=== PATIENT | female | born 1960 | race Caucasian/White ===

== ENCOUNTER 2018-11-24 15:11 | Outpatient (CLI) | payer MEDICAID, SELFPAY ==
[2018-11-24 15:29] LABS: Abs Immature Grans 0.01 k/cumm (0.0-0.09); Absolute Basophil Count 0.01 k/cumm (0.0-0.2); Absolute Eosinophil Count 0.06 k/cumm (0.0-0.7); Absolute Lymphocyte Count 2.38 k/cumm (1.2-3.4); Absolute Monocyte Count 0.81 k/cumm (0.11-0.7); Absolute Neutrophil Count 4.02 k/cumm (1.2-6.7); Basophils % 0.1; Eosinophils % 0.8; HCT 37.3 % (36.0-46.0); Immature Grans % 0.1; Lymphocytes % 32.6; Mean Corp. HGB Concentration 34.9 g/dL (32.0-36.0); Mean Corpuscular Hemoglobin 34.1 pg (27.0-33.0); Mean Corpuscular Volume 97.9 fL (80-95); Monocytes % 11.1; Neutrophils % 55.3; Platelet Count 254 x1000/uL (130-400); RBC 3.81 m/cumm (4.00-5.20); RBC Distribution Width 13.2 % (11.7-14.6); White Blood Cell Count 7.29 k/cumm (4.4-10.8)
[2018-11-24 16:27] LABS: ALT 15 U/L (12-78); AST 18 U/L (15-37); Alkaline Phosphatase 55 U/L (46-116); Anion Gap 9.9 mmol/L (3-11); BUN 13 mg/dL (7-18); Bilirubin, Total 0.4 mg/dL (0.2-1.0); C-Reactive Protein 0.79 mg/dL (0.0-0.3); CO2 27.1 mmol/L (21.0-32.0); CREATININE 0.78 mg/dL (0.55-1.02); Calcium 10.1 mg/dL (8.5-10.1); Chloride 99 mmol/L (98-107); Glucose 114 mg/dL (70-100); Sodium 136 mmol/L (136-145); Total Protein 7.5 g/dL (6.4-8.2)
== END 2018-11-24 15:31 ==
PROVIDERS: Visit Provider Internal Medicine Rheumatology
DX: M06.4 Inflammatory polyarthropathy (principal); Z79.899 Other long term (current) drug therapy
CPT/HCPCS: 36415; 80053; 85025; 86140

== ENCOUNTER 2019-02-26 14:12 | Outpatient (CLI) | payer MEDICAID, SELFPAY ==
[2019-02-26 14:32] LABS: Abs Immature Grans 0.01 k/cumm (0.0-0.09); Absolute Basophil Count 0.01 k/cumm (0.0-0.2); Absolute Eosinophil Count 0.08 k/cumm (0.0-0.7); Absolute Lymphocyte Count 2.32 k/cumm (1.2-3.4); Absolute Monocyte Count 0.57 k/cumm (0.11-0.7); Absolute Neutrophil Count 3.88 k/cumm (1.2-6.7); Basophils % 0.1; Eosinophils % 1.2; HCT 42.2 % (36.0-46.0); HGB 14.1 g/dL (12.0-15.5); Immature Grans % 0.1; Lymphocytes % 33.8; Mean Corp. HGB Concentration 33.4 g/dL (32.0-36.0); Mean Corpuscular Hemoglobin 31.9 pg (27.0-33.0); Mean Corpuscular Volume 95.5 fL (80-95); Mean Platelet Volume 9.3 fL (8.0-11.0); Monocytes % 8.3; Neutrophils % 56.5; Platelet Count 242 x1000/uL (130-400); RBC 4.42 m/cumm (4.00-5.20); RBC Distribution Width 13.7 % (11.7-14.6); White Blood Cell Count 6.87 k/cumm (4.4-10.8)
[2019-02-26 15:41] LABS: ALT 19 U/L (12-78); AST 20 U/L (15-37); Albumin 4.3 g/dL (3.4-5.0); Alkaline Phosphatase 75 U/L (46-116); Anion Gap 12.1 mmol/L (3-11); BUN 15 mg/dL (7-18); Bilirubin, Total 0.4 mg/dL (0.2-1.0); C-Reactive Protein 0.49 mg/dL (0.0-0.3); CO2 26.9 mmol/L (21.0-32.0); Calcium 10.2 mg/dL (8.5-10.1); Chloride 99 mmol/L (98-107); Glucose 112 mg/dL (70-100); Sodium 138 mmol/L (136-145)
== END 2019-02-26 14:32 ==
PROVIDERS: Visit Provider Internal Medicine Rheumatology
DX: M06.4 Inflammatory polyarthropathy (principal); Z79.899 Other long term (current) drug therapy
CPT/HCPCS: 36415; 80053; 85025; 86140

== ENCOUNTER 2019-04-23 15:06 | Outpatient (CLI) | payer MEDICAID, SELFPAY ==
[2019-04-23 15:44] LABS: Abs Immature Grans 0.01 k/cumm (0.0-0.09); Absolute Basophil Count 0.01 k/cumm (0.0-0.2); Absolute Eosinophil Count 0.11 k/cumm (0.0-0.7); Absolute Lymphocyte Count 1.93 k/cumm (1.2-3.4); Absolute Monocyte Count 0.63 k/cumm (0.11-0.7); Absolute Neutrophil Count 3.04 k/cumm (1.2-6.7); Basophils % 0.2; Eosinophils % 1.9; HCT 39.9 % (36.0-46.0); HGB 13.4 g/dL (12.0-15.5); Immature Grans % 0.2; Lymphocytes % 33.7; Mean Corp. HGB Concentration 33.6 g/dL (32.0-36.0); Mean Corpuscular Hemoglobin 31.6 pg (27.0-33.0); Mean Corpuscular Volume 94.1 fL (80-95); Mean Platelet Volume 9.4 fL (8.0-11.0); Platelet Count 302 x1000/uL (130-400); RBC 4.24 m/cumm (4.00-5.20); White Blood Cell Count 5.73 k/cumm (4.4-10.8)
[2019-04-23 17:56] LABS: ALT 15 U/L (12-78); AST 13 U/L (15-37); Albumin 3.5 g/dL (3.4-5.0); Alkaline Phosphatase 76 U/L (46-116); Anion Gap 11.5 mmol/L (3-11); BUN 13 mg/dL (7-18); Bilirubin, Total 0.3 mg/dL (0.2-1.0); C-Reactive Protein 3.72 mg/dL (0.0-0.3); CO2 25.5 mmol/L (21.0-32.0); CREATININE 0.71 mg/dL (0.55-1.02); Calcium 9.3 mg/dL (8.5-10.1); Chloride 100 mmol/L (98-107); Glucose 155 mg/dL (70-100); Sodium 137 mmol/L (136-145); Total Protein 7.3 g/dL (6.4-8.2)
== END 2019-04-23 15:26 ==
PROVIDERS: Visit Provider Internal Medicine Rheumatology
DX: M06.4 Inflammatory polyarthropathy (principal); Z79.899 Other long term (current) drug therapy
CPT/HCPCS: 36415; 80053; 85025; 86140

== ENCOUNTER 2019-06-15 14:33 | Outpatient (CLI) | payer MEDICAID, SELFPAY ==
[2019-06-15 14:59] LABS: Abs Immature Grans 0.01 k/cumm (0.0-0.09); Absolute Basophil Count 0.01 k/cumm (0.0-0.2); Absolute Eosinophil Count 0.07 k/cumm (0.0-0.7); Absolute Lymphocyte Count 1.43 k/cumm (1.2-3.4); Absolute Monocyte Count 0.49 k/cumm (0.11-0.7); Absolute Neutrophil Count 2.67 k/cumm (1.2-6.7); Basophils % 0.2; Eosinophils % 1.5; HCT 39.7 % (36.0-46.0); HGB 13.8 g/dL (12.0-15.5); Immature Grans % 0.2; Lymphocytes % 30.6; Mean Corp. HGB Concentration 34.8 g/dL (32.0-36.0); Mean Corpuscular Hemoglobin 32.9 pg (27.0-33.0); Mean Corpuscular Volume 94.5 fL (80-95); Mean Platelet Volume 9.1 fL (8.0-11.0); Monocytes % 10.5; Platelet Count 185 x1000/uL (130-400); RBC Distribution Width 17.5 % (11.7-14.6); White Blood Cell Count 4.68 k/cumm (4.4-10.8)
[2019-06-15 16:14] LABS: ALT 19 U/L (12-78); AST 15 U/L (15-37); Albumin 4.1 g/dL (3.4-5.0); Alkaline Phosphatase 50 U/L (46-116); Anion Gap 10.3 mmol/L (3-11); BUN 14 mg/dL (7-18); Bilirubin, Total 0.4 mg/dL (0.2-1.0); CO2 26.7 mmol/L (21.0-32.0); CREATININE 0.69 mg/dL (0.55-1.02); Calcium 9.4 mg/dL (8.5-10.1); Chloride 101 mmol/L (98-107); Glucose 103 mg/dL (70-100); Potassium 3.9 mmol/L (3.5-5.1); Sodium 138 mmol/L (136-145); Total Protein 7.2 g/dL (6.4-8.2)
[2019-06-15 16:37] LABS: C-Reactive Protein < 0.05 mg/dL (0.0-0.3)
== END 2019-06-15 14:53 ==
PROVIDERS: PCP Internal Medicine Rheumatology; Visit Provider Internal Medicine Rheumatology
DX: M06.4 Inflammatory polyarthropathy (principal); Z79.899 Other long term (current) drug therapy
CPT/HCPCS: 36415; 80053; 85025; 86140

== ENCOUNTER 2019-08-21 13:45 | Outpatient (CLI) | payer MEDICAID, SELFPAY ==
[2019-08-21 14:15] LABS: Abs Immature Grans 0.01 k/cumm (0.0-0.09); Absolute Basophil Count 0.01 k/cumm (0.0-0.2); Absolute Eosinophil Count 0.18 k/cumm (0.0-0.7); Absolute Lymphocyte Count 1.99 k/cumm (1.2-3.4); Absolute Monocyte Count 0.51 k/cumm (0.11-0.7); Absolute Neutrophil Count 2.16 k/cumm (1.2-6.7); Basophils % 0.2; Eosinophils % 3.7; HCT 40.9 % (36.0-46.0); HGB 14.1 g/dL (12.0-15.5); Immature Grans % 0.2; Lymphocytes % 40.9; Mean Corp. HGB Concentration 34.5 g/dL (32.0-36.0); Mean Corpuscular Hemoglobin 32.9 pg (27.0-33.0); Mean Corpuscular Volume 95.3 fL (80-95); Mean Platelet Volume 9.1 fL (8.0-11.0); Monocytes % 10.5; Neutrophils % 44.5; Platelet Count 192 x1000/uL (130-400); RBC 4.29 m/cumm (4.00-5.20); RBC Distribution Width 13.5 % (11.7-14.6); White Blood Cell Count 4.86 k/cumm (4.4-10.8)
[2019-08-21 15:30] LABS: ALT 17 U/L (14-59); AST 20 U/L (15-37); Albumin 4.7 g/dL (3.4-5.0); Alkaline Phosphatase 56 U/L (46-116); Anion Gap 11.3 mmol/L (3-11); BUN 14 mg/dL (7-18); Bilirubin, Total 0.6 mg/dL (0.2-1.0); CO2 27.7 mmol/L (21.0-32.0); CREATININE 0.71 mg/dL (0.55-1.02); Calcium 9.5 mg/dL (8.5-10.1); Chloride 103 mmol/L (98-107); Glucose 121 mg/dL (70-100); Potassium 3.9 mmol/L (3.5-5.1); Sodium 142 mmol/L (136-145); Total Protein 7.5 g/dL (6.4-8.2)
[2019-08-21 15:37] LABS: C-Reactive Protein < 0.05 mg/dL (0.0-0.3)
== END 2019-08-21 14:05 ==
PROVIDERS: PCP Internal Medicine Rheumatology; Visit Provider Internal Medicine Rheumatology
DX: M06.4 Inflammatory polyarthropathy (principal); Z79.899 Other long term (current) drug therapy
CPT/HCPCS: 36415; 80053; 85025; 86140

== ENCOUNTER 2019-12-02 14:02 | Outpatient (CLI) | payer MEDICAID, SELFPAY ==
[2019-12-02 14:37] LABS: Abs Immature Grans 0.01 k/cumm (0.0-0.09); Absolute Basophil Count 0.01 k/cumm (0.0-0.2); Absolute Eosinophil Count 0.15 k/cumm (0.0-0.7); Absolute Lymphocyte Count 1.69 k/cumm (1.2-3.4); Absolute Monocyte Count 0.44 k/cumm (0.11-0.7); Absolute Neutrophil Count 1.51 k/cumm (1.2-6.7); Basophils % 0.3; Eosinophils % 3.9; HCT 41.3 % (36.0-46.0); HGB 14.1 g/dL (12.0-15.5); Immature Grans % 0.3 %; Lymphocytes % 44.4; Mean Corp. HGB Concentration 34.1 g/dL (32.0-36.0); Mean Corpuscular Hemoglobin 32.9 pg (27.0-33.0); Mean Corpuscular Volume 96.3 fL (80-95); Mean Platelet Volume 9.6 fL (8.0-11.0); Monocytes % 11.5; Neutrophils % 39.6; Platelet Count 194 x1000/uL (130-400); RBC 4.29 m/cumm (4.00-5.20); RBC Distribution Width 13.6 % (11.7-14.6); White Blood Cell Count 3.81 k/cumm (4.4-10.8)
[2019-12-02 15:36] LABS: ALT 17 U/L (14-59); AST 19 U/L (15-37); Albumin 4.6 g/dL (3.4-5.0); Alkaline Phosphatase 53 U/L (46-116); Anion Gap 11.6 mmol/L (3-11); BUN 16 mg/dL (7-18); Bilirubin, Total 0.5 mg/dL (0.2-1.0); CO2 26.4 mmol/L (21.0-32.0); CREATININE 0.63 mg/dL (0.55-1.02); Calcium 9.4 mg/dL (8.5-10.1); Chloride 103 mmol/L (98-107); Glucose 107 mg/dL (74-106); Potassium 4.1 mmol/L (3.5-5.1); Sodium 141 mmol/L (136-145); Total Protein 7.2 g/dL (6.4-8.2)
[2019-12-02 16:00] LABS: C-Reactive Protein < 0.05 mg/dL (0.0-0.3)
== END 2019-12-02 14:22 ==
PROVIDERS: PCP Internal Medicine Rheumatology; Visit Provider Internal Medicine Rheumatology
DX: M06.4 Inflammatory polyarthropathy (principal); Z79.899 Other long term (current) drug therapy
CPT/HCPCS: 36415; 80053; 85025; 86140

== ENCOUNTER 2020-05-05 02:40 | Outpatient (CLI) | payer MEDICAID, SELFPAY ==
[2020-05-05 13:56] LABS: Absolute Eosinophil Count 0.15 k/cumm (0.0-0.7); Absolute Lymphocyte Count 1.41 k/cumm (1.2-3.4); Absolute Monocyte Count 0.41 k/cumm (0.11-0.7); Absolute Neutrophil Count 1.42 k/cumm (1.2-6.7); Eosinophils % 4.4; HCT 40.2 % (36.0-46.0); HGB 13.8 g/dL (12.0-15.5); Lymphocytes % 41.6; Mean Corp. HGB Concentration 34.3 g/dL (32.0-36.0); Mean Corpuscular Hemoglobin 33.3 pg (27.0-33.0); Mean Corpuscular Volume 97.1 fL (80-95); Mean Platelet Volume 9.9 fL (8.0-11.0); Monocytes % 12.1; Neutrophils % 41.9; Platelet Count 185 x1000/uL (130-400); RBC 4.14 m/cumm (4.00-5.20); White Blood Cell Count 3.39 k/cumm (4.4-10.8)
[2020-05-05 15:38] LABS: ALT 28 U/L (14-59); AST 27 U/L (15-37); Albumin 4.9 g/dL (3.4-5.0); Alkaline Phosphatase 48 U/L (46-116); Anion Gap 11.4 mmol/L (3-11); BUN 14 mg/dL (7-18); Bilirubin, Total 0.5 mg/dL (0.2-1.0); CO2 24.6 mmol/L (21.0-32.0); CREATININE 0.75 mg/dL (0.55-1.02); Calcium 9.8 mg/dL (8.5-10.1); Calculated LDL 134 mg/dL (<100); Chloride 101 mmol/L (98-107); Cholesterol 279 mg/dL (<200); Glucose 96 mg/dL (74-106); HDL Cholesterol 137 mg/dL (40-60); Potassium 4.2 mmol/L (3.5-5.1); Sodium 137 mmol/L (136-145); Total Protein 7.4 g/dL (6.4-8.2); Triglyceride 43 mg/dL (<150)
[2020-05-05 15:41] LABS: C-Reactive Protein < 0.05 mg/dL (0.0-0.3)
== END 2020-05-05 03:00 ==
PROVIDERS: PCP Internal Medicine Rheumatology; Visit Provider Nurse Practitioner Family
DX: M06.4 Inflammatory polyarthropathy (principal); Z79.899 Other long term (current) drug therapy; I10 Essential (primary) hypertension
CPT/HCPCS: 36415; 80053; 80061; 85025; 86140

== ENCOUNTER 2020-11-09 03:06 | Outpatient (CLI) | payer MEDICAID, SELFPAY ==
[2020-11-09 14:11] LABS: Abs Immature Grans 0.02 10^3/uL (0.0-0.06); Absolute Basophil Count 0.01 10^3/uL (0.0-0.2); Absolute Lymphocyte Count 1.57 10^3/uL (1.2-3.4); Absolute Monocyte Count 0.46 10^3/uL (0.1-0.8); Basophils % 0.3; Eosinophils % 2.6; HCT 41.5 % (36.0-46.0); HGB 13.9 g/dL (11.2-15.7); Immature Grans % 0.5; Lymphocytes % 40.5; MCHC 33.5 % (32.0-36.0); MCV 98.6 fL (80-95); MPV 9.8 fL (8.0-11.0); Monocytes % 11.9; Neutrophils % 44.2; Nucleated RBC 0 %; Platelet Count 165 10^3/uL (130-400); RBC 4.21 10^6/uL (3.93-5.22); RDW 13.6 % (11.7-14.6); RDW-SD 49.8 fL; WBC 3.88 10^3/uL (4.4-10.8)
[2020-11-09 14:17] LABS: Absolute Neutrophil Count 1.71 10^3/uL (1.2-6.7)
[2020-11-09 14:58] LABS: ALT 24 U/L (14-59); AST 21 U/L (15-37); Albumin 4.8 g/dL (3.4-5.0); Alkaline Phosphatase 51 U/L (46-116); Anion Gap 10.9 mmol/L (3-11); BUN 15 mg/dL (7-18); Bilirubin, Total 0.6 mg/dL (0.2-1.0); CO2 24.1 mmol/L (21.0-32.0); CREATININE 0.65 mg/dL (0.55-1.02); Calcium 9.9 mg/dL (8.5-10.1); Chloride 103 mmol/L (98-107); Glucose 100 mg/dL (74-106); Sodium 138 mmol/L (136-145); Total Protein 7.3 g/dL (6.4-8.2)
[2020-11-09 15:04] LABS: C-Reactive Protein < 0.05 mg/dL (0.0-0.3)
== END 2020-11-09 03:26 ==
PROVIDERS: PCP Internal Medicine Rheumatology; Visit Provider Internal Medicine Rheumatology
DX: M06.4 Inflammatory polyarthropathy (principal); Z79.899 Other long term (current) drug therapy
CPT/HCPCS: 36415; 80053; 85025; 86140

== ENCOUNTER 2021-04-21 04:02 | Outpatient (CLI) | payer MEDICAID, SELFPAY ==
[2021-04-21 14:18] LABS: Abs Immature Grans 0.01 10^3/uL (0.0-0.06); Absolute Basophil Count 0.02 10^3/uL (0.0-0.2); Absolute Eosinophil Count 0.22 10^3/uL (0.0-0.7); Absolute Lymphocyte Count 1.96 10^3/uL (1.2-3.4); Absolute Monocyte Count 0.48 10^3/uL (0.1-0.8); Absolute Neutrophil Count 1.43 10^3/uL (1.2-6.7); Basophils % 0.5; Eosinophils % 5.3; HCT 41.2 % (36.0-46.0); HGB 14.1 g/dL (11.2-15.7); Immature Grans % 0.2; Lymphocytes % 47.6; MCH 33.6 pg (27.0-33.0); MCHC 34.2 % (32.0-36.0); MCV 98.1 fL (80-95); MPV 10.1 fL (8.0-11.0); Monocytes % 11.7; Neutrophils % 34.7; Nucleated RBC 0 %; Platelet Count 164 10^3/uL (130-400); WBC 4.12 10^3/uL (4.4-10.8)
[2021-04-21 14:59] LABS: ALT 33 U/L (14-59); AST 28 U/L (15-37); Albumin 4.8 g/dL (3.4-5.0); Alkaline Phosphatase 55 U/L (46-116); Anion Gap 10.5 mmol/L (3-11); BUN 18 mg/dL (7-18); Bilirubin, Total 0.4 mg/dL (0.2-1.0); CO2 25.5 mmol/L (21.0-32.0); CREATININE 0.7 mg/dL (0.55-1.02); Calcium 9.6 mg/dL (8.5-10.1); Calculated LDL 113 mg/dL (<100); Chloride 104 mmol/L (98-107); Cholesterol 274 mg/dL (<200); Glucose 95 mg/dL (74-106); HDL Cholesterol 148 mg/dL (40-60); Potassium 4.1 mmol/L (3.5-5.1); Sodium 140 mmol/L (136-145); Total Protein 7.4 g/dL (6.4-8.2); Triglyceride 65 mg/dL (<150)
[2021-04-21 15:40] LABS: C-Reactive Protein < 0.05 mg/dL (0.0-0.3)
== END 2021-04-21 04:03 | disposition home or self-care (01) ==
LOC: LBO 04:02
PROVIDERS: PCP Internal Medicine Rheumatology; Visit Provider Internal Medicine Rheumatology
DX: M06.4 Inflammatory polyarthropathy (principal); Z79.899 Other long term (current) drug therapy
CPT/HCPCS: 36415; 80053; 80061; 85025; 86140

== ENCOUNTER 2024-03-28 05:54 | Emergency (ER) | payer MEDICAID, SELFPAY ==
[2024-03-28] VITALS (27 sets, daily range): BP systolic 137–185; BP diastolic 81–101; PULSE 66–89; RESP 10–26; TEMP 37.2; O2SAT 20–97
--- NOTE | 2024-03-28 06:00 | RT.EKG_ITS ---
APPROVED REPORT Exam: Resting ECG Reason for Exam: short of breath Patient Location: E HR:74 bpm ECG Measurements Heart Rate 74 AXIS AR 178 P 71 QRSd 78 QRS 50 QT 390 T 70 QTc 435 Conclusion Sinus rhythm...normal P axis, V-rate 60- 99 Probable left atrial enlargement...P >50mS, <-0.10mV V1 Physician: no stemi, no [id number]
--- NOTE | 2024-03-28 06:07 | W.ED.GENAD ---
Discharge Plan Discharge Details Chief Complaint: RespSymp Primary Care Provider: Felisha Crews ED Provider: Bautista Hardin Home Meds and New Rx's Prescriptions: No Action calcium carbonate-vitamin D3 [Calcium 500 With D] 1 EACH tablet 1 ea PO BID lisinopril-hydrochlorothiazide 1 EACH tablet 1 tab-cap PO DAILY Qty: 90 acterma HPI General Date/Time Provider Initiated Documentation: 03/28/24 05:54. HPI Narrative: This is a 63-year-old female with a past medical history of tobacco use, rheumatoid arthritis, hypertension, who denies any other significant past medical history who presents today for evaluation of right-sided chest pain. Patient states that this morning about an hour or so ago she woke up and had a sharp pain in her right chest. Pain is constant and sharp in nature, it is worse with breathing though. Pain is isolated to the right chest. No radiation to her arms or neck. She denies any fever or chills. She denies any severe cough. She denies any shortness of breath otherwise. She denies any history of blood clots/PE/[place] or cardiac disease. She denies any hemoptysis. No recent long trips surgeries or procedures. She is not on estrogen. She denies any history of pneumothorax. No trauma. No other complaints at this time. Related Data Home Medications Medication Instructions Recorded Confirmed calcium carbonate 500 mg-vitamin 1 ea PO BID 01/07/14 03/28/24 D3 10 mcg (400 unit) tablet (Calcium 500 With D) lisinopril 10 1 tab-cap PO DAILY #90 tab-caps 06/28/15 03/28/24 mg-hydrochlorothiazide 12.5 mg tablet acterma 03/28/24 Allergies Allergy/AdvReac Type Severity Reaction Status Date / Time fluoxetine AdvReac Unknown TREMOR Unverified 03/28/24 06:05 General Stated Complaint: RespSymp DEE: 3 Review of Systems All systems reviewed & are unremarkable except as noted in HPI and below Exam Narrative Exam Narrative: 1.Const: Well-nourished, Well-developed, appearing stated age 2.Eyes: PERRL, no conjunctival injection, and symmetrical lids. 3.ENT: Atraumatic external nose and ears. Moist MM. Neck: Symmetric, trachea midline, No thyromegaly. 4.CVS: +S1/S2, No murmurs or gallops. Peripheral pulses 2+ and equal in all extremities. Brisk capillary refill in all extremities. 5.RESP: Unlabored respiratory effort. Clear to auscultation bilaterally. No wheezes rales or rhonchi. No reproducible chest wall tenderness 6.GI: Soft, Nontender/Nondistended, No hepatosplenomegaly. No guarding or rebound. Negative Parsons sign. No right upper quadrant tenderness on palpation 7.MSK: Normocephalic/Atraumatic, Extremities w/o deformity or ttp No cyanosis or clubbing, Normal movement of all extremities 8.Skin: Warm, Dry. No rashes or lesions. 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 Sensation grossly intact, no focal neurologic deficits. 10.Psych: (AAO) x3. Appropriate mood and affect Course Vital Signs Vital signs: Vital Signs Temperature 37.2 C 03/28/24 05:56 Pulse 89 03/28/24 05:56 Respiratory Rate 20 03/28/24 05:56 Blood Pressure 185/101 H 03/28/24 05:56 Pulse Oximetry 94 03/28/24 05:56 Temperature 37.2 C 03/28/24 05:56 Pulse 89 03/28/24 05:56 Respiratory Rate 20 03/28/24 05:56 Respiratory Effort Short of Breath 03/28/24 06:00 Respiratory Depth Shallow 03/28/24 06:00 Blood Pressure 185/101 H 03/28/24 05:56 Pulse Oximetry 20 L 03/28/24 06:00 Oxygen Delivery Method Room Air 03/28/24 06:00 Pain Level 7 03/28/24 05:56 Medical Decision Making This is a 63-year-old female with a past medical history of tobacco use, rheumatoid arthritis, hypertension, who denies any other significant past medical history who presents today for evaluation of right-sided chest pain. Patient states that this morning about an hour or so ago she woke up and had a sharp pain in her right chest. Pain is constant and sharp in nature, it is worse with breathing though. Pain is isolated to the right chest. No radiation to her arms or neck. She denies any fever or chills. She denies any severe cough. She denies any shortness of breath otherwise. She denies any history of blood clots/PE/[place] or cardiac disease. She denies any hemoptysis. No recent long trips surgeries or procedures. She is not on estrogen. She denies any history of pneumothorax. No trauma. No other complaints at this time. Exam demonstrates well-appearing female, stable vital signs, EKG shows no STEMI. No rash on the chest wall, no reproducible rib pain. Negative Parsons sign, no right upper quadrant tenderness. Lungs are clear. Differential includes intercostal strain, PE with cardiac strain, less likely ACS, pneumothorax is of concern, and pneumonia is on the differential but low likelihood. Will evaluate for these etiologies, monitor closely and reassess. 7 AM Laboratory workup has returned, no white count bandemia or left shift. Electrolytes stable, VBG normal, proBNP normal suggesting no signs of heart strain. Troponin normal. We are still pending Fluvid results. Pending CT scan. Patient will be signed out to my colleague Dr. Rush for follow-up on repeat troponin and CT scan results. Patient remains hemodynamically stable. Bedside echo shows no signs of right heart strain, no pericardial effusion, no significant wall motion abnormalities. Quality:[facility] Health Related Social Needs: No Data to Display [facility] Social History Smoking/Tobacco Use Status: Current every day Tobacco Type: cigarettes Smoking risk assessment performed?: Yes Alcohol Intake: current Alcohol Intake frequency: a few times a week Substance use type: does not use Do you feel safe at home: Yes PAWSS Have you Been Recently Intoxicated or Drunk Within the Last 30 days?: No Have you Ever Experienced Previous Episodes of Alcohol Withdrawal?: No Have you ever Experienced Withdrawal Seizures?: No Have you ever Experienced Delirium Tremens(DT)s?: No Have you ever undergone Alcohol Rehabilitation Treatment (i.e, inpt ot outpatient treatment programs)?: No Have you ever Experienced Blackouts?: No Have you ever Combined Alcohol with other Downers within the last 90 days?: No Have you ever Combined Alcohol with any other Substance of Abuse during the last 90 days?: No Positive Blood Alcohol level on Presentation? [PCS.BAL]: No Evidence of Increased Autonomic Activity (i.e. HR>120, tremor, sweating, agitation, nausea)?: No Result: 0 POCUS Exam (ED) Limited Cardiac Exam DATE OF EXAM: 03/28/24 TIME OF EXAM: 06:58 PROVIDER THAT PERFORMED THE STUDY: Bautista Hardin IS THIS A REPEAT EXAM DURING THIS ENCOUNTER: no REASON FOR EXAM: Chest pain VISUALIZED STRUCTURES: Left atrium, Left ventricle, Right ventricle, Aortic valve and Interventricular septum VIEW OBTAINED: Parasternal long-axis and Parasternal short-axis PERTINENT FINDINGS/IMPRESSION: No apparent abnormalities Exam complete
[2024-03-28] MEDS: Ketorolac 15 MG/ML VIAL IVP (06:21)
[2024-03-28 06:24] LABS: BE (Venous) -1 mmol/L (-2-3); HCO3 (Venous) 25 mmol/L (23-28); O2 Sat (Venous) 58 %; TCO2 (Venous) 22 mmol/L (24-29); pCO2 (Venous) 44 mmHg (41-51); pH (Venous) 7.36 (7.31-7.41); pO2 (Venous) 31 mmHg
[2024-03-28 06:25] LABS: Abs Immature Grans 0.05 10^3/uL (0.0-0.06); Absolute Basophil Count 0.02 10^3/uL (0.0-0.2); Absolute Eosinophil Count 0.11 10^3/uL (0.0-0.7); Absolute Lymphocyte Count 1.11 10^3/uL (1.2-3.4); Absolute Monocyte Count 0.56 10^3/uL (0.1-0.8); Absolute Neutrophil Count 6.81 10^3/uL (1.2-6.7); Basophils % 0.2 %; Eosinophils % 1.3 %; HCT 43.7 % (36.0-46.0); HGB 14.9 g/dL (11.2-15.7); Immature Grans % 0.6 %; Lymphocytes % 12.8 %; MCH 33.4 pg (27.0-33.0); MCHC 34.1 % (32.0-36.0); MCV 98 fL (80-95); MPV 9.4 fL (8.0-11.0); Monocytes % 6.5 %; Neutrophils % 78.6 %; Platelet Count 192 10^3/uL (130-400); RBC 4.46 10^6/uL (3.93-5.22); RDW 14.2 % (11.7-14.6); RDW-SD 51.6 fL; WBC 8.66 10^3/uL (4.4-10.8)
[2024-03-28 06:48] LABS: ALT 30 U/L (14-59); AST 24 U/L (15-37); Albumin 4.3 g/dL (3.4-5.0); Alkaline Phosphatase 52 U/L (46-116); Anion Gap 12.7 mmol/L (3-11); BUN 15 mg/dL (7-18); Bilirubin, Total 0.5 mg/dL (0.2-1.0); CO2 24.3 mmol/L (21.0-32.0); CREATININE 0.6 mg/dL (0.55-1.02); Calcium 8.9 mg/dL (8.5-10.1); Chloride 106 mmol/L (98-107); Estimated GFR 100.17 (mL/min/1.73m2); Glucose 91 mg/dL (74-106); NT-proBNP 33 pg/mL (<300); Potassium 3.8 mmol/L (3.5-5.1); Sodium 143 mmol/L (136-145); Total Protein 7.1 g/dL (6.4-8.2)
[2024-03-28 06:50] LABS: Troponin I < 50 ng/L (< or =60)
[2024-03-28 06:51] LABS: INR 1.1 (0.9-1.1); Prothrombin Time 10.8 sec (9.1-11.1)
[2024-03-28] MEDS: Omnipaque 350 MG/ML 100 ML BTL IJ (06:58)
[2024-03-28] MEDS: Normal Saline - Diluent 50 ML VIAL IJ (06:59)
[2024-03-28] MEDS: Normal Saline Flush 10 ML SYR IVP (07:00)
[2024-03-28 07:05] LABS: COVID-19 PCR Negative (Negative); Influenza A PCR Negative (Negative); Influenza B PCR Negative (Negative); RSV PCR Negative (Negative)
[2024-03-28 07:06] LABS: Source Nasopharynx
--- NOTE | 2024-03-28 07:20 | DI.CT_ITS ---
Exam(s) CT CHEST PE CTA EXAM: CT CHEST PE CTA CLINICAL HISTORY: right sided chest pain, eval for PE. TECHNIQUE: Imaging Protocol: CT angiography of the chest was performed using pulmonary embolus cyndi col. Multi planar reconstructions were performed. CONTRAST MATERIAL: Intravenous: Omnipaque 350 Contrast volume: 100 cc COMPARISON: No exams were available for comparison FINDINGS: CHEST: PULMONARY ARTERIES: There are no intraluminal filling defects to suggest acute pulmonary emboli. LUNGS: Significant area of infiltrate noted in the right middle lobe. Remainder of the right lung ap pears unremarkable and there are no focal findings in the opposite-left lung. There are no pleural e ffusions on either side. No significant focal findings in the trachea and mainstem bronchi. There i s no bronchiectasis.. MEDIASTINUM: There is no hilar nor mediastinal adenopathy. Visualized thyroid unremarkable. CARDIAC: Heart size is upper normal. There is no pericardial effusion.Caliber of the thoracic aorta is within normal limits. No evidence of dissection. Aberrant right subclavian artery is noted. Ther e is no significant shift of the interventricular septum. PARTIALLY VISUALIZED UPPERMOST ABDOMEN: No obvious findings OSSEOUS: No significant osseous lesions.No fractures.. IMPRESSION: 1. No evidence of acute pulmonary emboli. No evidence of pulmonary infarction.No pleural effusions. 2. Prominent area of infiltrate noted in the right middle lobe consistent with pneumonia. No pleural effusion. No significant adenopathy. 3. Average right subclavian artery incidentally noted. This is developmental. RADIATION DOSE DELIVERED: 265.27mGy.cm Total DLP DATA REPOSITORY: All CT scans at this facility are submitted to the National Radiology Data Registry (NRDR) Dose Index Registry (DIR) with the [employer] (A[employer]). RADIATION OPTIMIZATION: All CT scans at this facility use at least one of these dose optimization te chniques: automated exposure control; mA and/or kV adjustment per patient size (includes targeted exa ms where dose is matched to clinical indication); or iterative reconstruction.
--- NOTE | 2024-03-28 08:56 | DI.VRAD_ITS ---
PROCEDURE INFORMATION: Exam: CTA Chest With Contrast Exam date and time: 03/28/2024 7:04 AM Age: 63 years old Clinical indication: Pain; Right-sided TECHNIQUE: Imaging protocol: Computed tomographic angiography of the chest with contrast. Exam focused on the arteries. 3D rendering (Not supervised by radiologist): MIP and/or 3D reconstructed images were created by the technologist. Radiation optimization: All CT scans at this facility use at least one of these dose optimization techniques: automated exposure control; mA and/or kV adjustment per patient size (includes targeted exams where dose is matched to clinical indication); or iterative reconstruction. Contrast material: OMNI 350; Contrast volume: 65 ml; Contrast route: INTRAVENOUS (IV); COMPARISON: No relevant prior studies available. FINDINGS: Pulmonary arteries: No pulmonary embolus is appreciated. Great vessels off aortic arch: Aberrant right subclavian artery. Aorta: No thoracic aortic aneurysm seen. Arterial calcifications. Lungs: Mild cystic changes in the lungs. Focal consolidation in the right middle lobe with focal cyst or cavitation. Scattered nodular opacities in the right lung. Pleural spaces: No pleural effusion. Heart: No pericardial effusion. Coronary arteries: Coronary artery calcifications. Lymph nodes: Nonspecific mediastinal lymph nodes. Adrenal glands: Adrenal thickening. Stomach and bowel: Stomach appears thickened but is incompletely evaluated. Bones/joints: No acute pertinent abnormality seen. Soft tissues: No acute pertinent abnormality seen. IMPRESSION: 1. No pulmonary embolus is appreciated. 2. Consolidation in the right middle lobe consistent with pneumonia. Follow-up to resolution advised. 3. Gastric thickening, incompletely evaluated. Cannot exclude gastritis or neoplasm. Follow-up if clinically warranted. 4. Additional findings as above. Dictated and Authenticated by: Susy Gutiérrez MD. Ordering:MAK Baum MD
--- NOTE | 2024-03-28 09:01 | W.EDPROG ---
Date of service: 03/28/24 Time of Service: 09:01 Medical Decision Making Patient signed out to me pending second troponin and CT, CT shows no PE but does have an likely infiltrate in the right middle lobe which is where her pain is, reassuringly procalcitonin and no leukocytosis. Will start on oral Augmentin and azithromycin, if second troponin is negative plan for discharge. Did discuss she needs to follow-up with her PCP to have follow-up imaging to make sure the infiltrate has resolved and if not may need to be referred to a fan installer. Patient stable, second troponin. No oxygenation requirements and hemodynamically stable so feel she can be treated as an outpatient. She will follow-up with her PCP and return precautions given Imaging Data Radiologic Study: Attestation: I personally reviewed and interpreted this imaging study as follows: Imaging: CT Scan Radiologist's impression: IMPRESSION: 1. No pulmonary embolus is appreciated. 2. Consolidation in the right middle lobe consistent with pneumonia. Follow-up to resolution advised. 3. Gastric thickening, incompletely evaluated. Cannot exclude gastritis or neoplasm. Follow-up if clinically warranted. 4. Additional findings as above. Lab Data Lab results reviewed: Yes I reviewed the patient's lab results. Quality:[facility] Health Related Social Needs: No Data to Display Sign Out Sign Out Data: Sign Out Comment: Right-sided chest pain, exam otherwise benign. Follow-up on CT scan results and repeat troponin Last updated by Bautista Hardin DO at 03/28/24 07:01 Discharge Plan Disposition Patient Disposition: Home Condition: Stable Discharge Details Clinical Impression: Chest pain, Community acquired pneumonia Primary Care Provider: Felisha Crews ED Provider: Nilson Rush Home Meds and New Rx's Prescriptions: New amoxicillin 875 mg tablet 875 mg PO BID 7 Days Qty: 14 0RF azithromycin 250 mg tablet 250 mg PO DAILY 4 Days Qty: 4 0RF Rx Instructions: start on day 2 of therapy Continued calcium carbonate-vitamin D3 [Calcium 500 With D] 1 EACH tablet 1 ea PO BID lisinopril-hydrochlorothiazide 1 EACH tablet 1 tab-cap PO DAILY Qty: 90 Actemra ACTPen 162 mg/0.9 mL pen injector 162 mg subcut QWEEK Discharge Instructions Additional Instructions: Your labs do not show any concerning findings at this time and did show you have what is called an infiltrate which is usually due to a pneumonia which is a lung infection Follow-up with your primary care provider within 1 to 2 weeks. You should have follow-up imaging to make sure this infiltrate has resolved If you feel more ill, have worsening pain or difficulty breathing return to the emergency department for reevaluation
[2024-03-28] MEDS: Amoxicillin 875/Clav. 125 TAB PO (09:16)
[2024-03-28] MEDS: Azithromycin 250 MG TAB 500 MG PO (09:16)
[2024-03-28 09:35] LABS: Troponin I < 50 ng/L (< or =60)
== END 2024-03-28 09:59 | disposition home or self-care (01) ==
PROVIDERS: Student in an Organized Health Care Education/Training Program; Emergency Provider Emergency Medicine; PCP Internal Medicine Rheumatology
DX: J18.9 Pneumonia, unspecified organism (principal); R07.89 Other chest pain
CPT/HCPCS: 00123; 71275; 80053; 82805; 87637; 93005; 93308; 96374; 99285; 83880; 84484; 85025; 85610; 85730; 93010; 99283; J1885; J3490